=== PATIENT | female | born 1965 | race Caucasian/White ===

== ENCOUNTER 2017-09-13 20:31 | Emergency (ER) | payer OTHER ==
[~2017-09-13] VITALS: Ht 162.6 cm; Wt 57.7 kg
[~2017-09-13 20:31] MED LIST: BIRTH CONTROL PILLS; CIPR500T4 PO; HYDR-3498 PO; IBUP-1542 PO; PHEN-538 PO; PRED20TA PO
[2017-09-13 20:34] VITALS: Ht 162.6 cm; Wt 57.7 kg
[2017-09-13 21:25] VITALS: BP 128/90; PULSE 90; RESP 18; TEMP 97.7
[2017-09-13 21:28] LABS: URINE BLOOD (Dip) POC Negative (NEGATIVE)
[2017-09-13] MEDS ORDERED: LIDOCAINE/MYLANTA 40 ML BTL PO STA (21:29)
[2017-09-13 22:00] LABS: BASOPHILS % 0.4 % (0.0-2.0); EOSINOPHILS % 0.6 % (0.0-7.0); HEMATOCRIT 43.6 % (37.0-47.0); LYMPHOCYTES % 14.5 % (15.0-51.0); MEAN CORPUSCULAR HEMOGLOBIN 31.9 pg (29.0-33.0); MEAN CORPUSCULAR HGB CONC 34.4 g/dl (32.0-37.0); MEAN CORPUSCULAR VOLUME 92.8 fl (82.0-101.0); MEAN PLATELET VOLUME 9.8 fl (7.4-10.4); MONOCYTE # 0.5 10^3/ul (0.3-0.9); MONOCYTES % 6.9 % (0.0-11.0); NEUTROPHIL # 5.3 10^3/ul (1.6-7.5); NEUTROPHILS % 77.5 % (39.0-77.0); PLATELET COUNT 302 10^3/UL (140-415); RED CELL DISTRIBUTION WIDTH 12.4 % (11.5-14.5); WHITE BLOOD COUNT 6.8 10^3/ul (4.8-10.8)
[2017-09-13 22:26] LABS: ANION GAP 17 (8-16); BLOOD UREA NITROGEN 16 mg/dl (7-20); CARBON DIOXIDE 27 mmol/L (21-31); CHLORIDE 104 mmol/L (97-110); GLUCOSE 96 mg/dl (70-220); SODIUM 144 mmol/L (135-144)
[2017-09-13] MEDS ORDERED: OXYCODONE/ACETAMINOPHEN (5/325) TAB PO ONE (22:30)
[2017-09-13] MEDS ORDERED: KETOROLAC 15 MG INJ IV STA (22:30)
[2017-09-13] MEDS ORDERED: IBUP-1542 PO (22:35)
[2017-09-13 22:45] LABS: TROPONIN-I < 0.012 ng/ml (0.00-0.12)
--- NOTE | 2017-09-13 22:58 | ERD ---
ER Documentation Chief Complaint Chief Complaint chest pain x 1 week ,back pain [id number], denies injury HPI 52-year-old woman complains of 1 week of sharp nonexertional nonradiating chest pain and osteoarthritic pain to the back 2 months, not 2 weeks. She was recently admitted to [facility] for pain control and told she needs to undergo back surgery due to severe osteoarthritis of the thoracic and lumbar spine. She is currently homeless as well and needs a place to stay. She is requesting pain control. She states she has difficulty ambulating due to pain. She denies fevers or chills, no cough, no weight loss, no complaints of headache or blurry vision. ROS All systems reviewed and are negative except as per history of present illness. Medications Home Meds Active Scripts Ibuprofen* (Ibuprofen*) 600 Mg Tablet, 600 MG PO Q8 for PAIN AND/OR INFLAMMATION , #30 TAB Prov:REGINE PULIDO MD 09/13/17 Phenazopyridine Hcl* (Pyridium*) 200 Mg Tab, 200 MG PO TID for URINARY PAIN, #6 TAB Prov:DESMOND GIRON NP 05/30/15 Ciprofloxacin Hcl* (Ciprofloxacin Hcl*) 500 Mg Tablet, 500 MG PO BID for 10 Days , TAB Prov:DESMOND GIRON NP 05/30/15 Ibuprofen* (Motrin*) 600 Mg Tab, 600 MG PO Q6, #30 TAB Prov:DWAYNE SEXTON MD 04/01/15 Hydrocodone Bit-Acetaminophen* ([place]*) 5-325 Mg Tab, 1 TAB PO Q6 Y for PAIN, # 20 TAB Prov:DWAYNE SEXTON MD 04/01/15 Prednisone* (Prednisone*) 20 Mg Tab, 40 MG PO DAILY for 4 Days, TAB Prov:DWAYNE SEXTON MD 04/01/15 Reported Medications [ Control Pills] No Conflict Check 06/28/10 Allergies Allergies: Coded Allergies: Penicillins (Verified Allergy, Mild, 05/30/15) codeine (Verified Allergy, Mild, MIGRAINE, 05/30/15) Sulfa (Sulfonamide Antibiotics) (Verified Allergy, Unknown, 05/30/15) PMhx/Soc Chronic pain syndrome, osteoarthritis History of Surgery: Yes ( x28 years) Anesthesia Reaction: No Hx Neurological Disorder: No Hx Respiratory Disorders: No Hx Cardiac Disorders: No Hx Psychiatric Problems: No Hx Miscellaneous Medical Probl: No Hx Alcohol Use: Yes (SOCIALLY) Hx Substance Use: Yes (Smokes Marijuana occasionally) Hx Tobacco Use: No Smoking Status: Current some day smoker FmHx Family History: No diabetes Physical Exam Vitals Vital Signs Date Time Temp Pulse Resp B/P Pulse Ox O2 Delivery O2 Flow Rate FiO2 09/13/17 21:25 97.7 90 18 128/90 100 Room Air 09/13/17 20:34 97.7 101 20 143/82 98 Physical Exam GENERAL: Well-developed, well-nourished, well-hydrated, in no apparent distress , looks nontoxic in appearance, afebrile HEENT: Moist mucous membranes, pink conjunctiva, no cervical spine tenderness or step-off deformities, no goiter, no jaundice or icterus, extraocular movements intact without pain. No submandibular induration, and no pharyngeal erythema NEURO: Alert and oriented 3, cranial nerves II through XII intact bilaterally, pupils equal round reactive to light, no focal deficits or facial asymmetry, sensation intact distally Strength 5/5 in upper and lower extremities bilaterally CARDIAC: Tachycardic and regular, no murmurs rubs or gallops LUNGS: Clear bilaterally no wheezing crackles or stridor ABDOMEN: Soft nontender, no guarding, no rigidity, no rebound, no psoas sign no obturator sign. Normoactive bowel sounds SKIN: Warm and dry to touch, no abrasions, contusions, or hematomas, no lacerations, no ecchymosis, no target lesions, and without ulcers EXTREMITIES: No clubbing cyanosis or edema, calves are bilaterally symmetrical, no Homans sign, no popliteal cord sign. Distal pulses equal and bilateral PSYCH: Normal affect without agitation or irritability Result Diagram: 09/13/17213909/[id number]/172139 Results 24 hrs Laboratory Tests Test 09/13/17 21:27 09/13/17 21:40 Bedside Urine pH (LAB) 5.5 Bedside Urine Protein (LAB) Trace Bedside Urine Glucose (UA) Negative Bedside Urine Ketones (LAB) 1+ Bedside Urine Blood Negative Bedside Urine Nitrite (LAB) Negative Bedside Urine Leukocyte Esterase (L Trace White Blood Count 6.810^3/ul Red Blood Count 4.7010^6/ul Hemoglobin 15.0g/dl Hematocrit 43.6% Mean Corpuscular Volume 92.8fl Mean Corpuscular Hemoglobin 31.9pg Mean Corpuscular Hemoglobin Concent 34.4g/dl Red Cell Distribution Width 12.4% Platelet Count 75708^3/UL Mean Platelet Volume 9.8fl Neutrophils % 77.5% Lymphocytes % 14.5% Monocytes % 6.9% Eosinophils % 0.6% Basophils % 0.4% Nucleated Red Blood Cells % 0.0/100WBC Neutrophils # 5.310^3/ul Lymphocytes # 1.010^3/ul Monocytes # 0.510^3/ul Eosinophils # 0.010^3/ul Basophils # 0.010^3/ul Nucleated Red Blood Cells # 0.010^3/ul Sodium Level 144mmol/L Potassium Level 4.0mmol/L Chloride Level 104mmol/L Carbon Dioxide Level 27mmol/L Anion Gap 17 Blood Urea Nitrogen 16mg/dl Creatinine 0.80mg/dl Glucose Level 96mg/dl Calcium Level 10.0mg/dl Troponin I < 0.012ng/ml Current Medications Medications (Trade) Dose Ordered Sig/Zari Route PRN Reason Start Time Stop Time Status Last Admin Dose Admin Miscellaneous Medication (Gi Cocktail (2)) 40 ml ONCE STAT PO 09/13/17 21:29 09/13/17 21:31 DC 09/13/17 21:51 Ketorolac Tromethamine (Toradol) 15 mg ONCE STAT IV 09/13/17 22:30 09/13/17 22:32 DC Oxycodone/ Acetaminophen (Percocet (5/ 325)) 1 tab ONCE ONCE PO 09/13/17 22:30 09/13/17 22:32 DC Procedures/MDM IV line was established patient was placed on classroom monitor rhythm strip revealed a sinus tachycardia at 110 bpm with upright P and T waves. Patient was afebrile EKG performed, read by me revealed a sinus tachycardia at 110 bpm, normal axis, narrow QRS complex, no concerning ST elevations or depressions noted. One view chest x-ray performed, read by me revealed atelectatic changes bilaterally, no acute infiltrates, no pneumothorax. I administered Toradol 15 mg IV and Percocet 1 tablet p.o. for pain control. CBC and electrolytes are normal, troponin was negative. Urine analysis was unremarkable. I offered her social media campaign manager consultation in the morning to help with placement issues, patient insists she is now homeless but admits to being at a board-and- care facility recently and having to also use the services of [facility] which is a homeless correction. She became extremely agitated when I informed her I have no indication at this time for further intervention, imaging, or admission into the hospital. It seems admission is what she is seeking today and began to berate me after being informed about her disposition. She was extremely rude to me and other ED staff. Differential diagnoses considered, included but not limited to acute coronary syndrome, pulmonary embolism, aortic dissection, abdominal aortic aneurysm, sepsis, stroke, meningitis, encephalitis, pneumonia, appendicitis, cholecystitis , bowel obstruction, pyelonephritis, nephrolithiasis, cystitis, as well as metabolic, hematologic, and electrolyte abnormalities. As well as abscess, cellulitis, fractures, and dislocations. Patient feels much better at this time, and vital signs are normal, symptoms have improved. I did give strict instructions to return to the ED if symptoms continue or worsen, patient will otherwise follow-up with primary care physician. Patient understood instructions and agreed to plan. Disclaimer: Inadvertent spelling and grammatical errors are likely due to EHR/ dictation software use and do not reflect on the overall quality of patient care. Also, please note that the electronic time recorded on this note does not necessarily reflect the actual time of the patient encounter. Departure Diagnosis: Primary Impression: Osteoarthritis Osteoarthritis location: spine Spinal region: thoracolumbar Spinal osteoarthritis complication: unspecified spinal osteoarthritis Qualified Code : M47.815 - Osteoarthritis of thoracolumbar spine, unspecified spinal osteoarthritis complication status Additional Impression: Chest pain Chest pain type: unspecified Qualified Code: R07.9 - Chest pain, unspecified type Condition: Good Patient Instructions: What Is Osteoarthritis?, Chest Pain, Uncertain Cause REGINE PULIDO MD Sep 13, 2017 22:58
--- NOTE | 2017-09-13 23:16 | RADRPT ---
PROCEDURE: Portable chest x-ray. CLINICAL INDICATION: Chest pain. TECHNIQUE: Portable AP view of the chest. COMPARISON: None. FINDINGS: No pulmonary edema or conolidation is identified. The cardiac silhouette is magnified. No pleural effusion is seen. There is no pneumothorax. IMPRESSION: 1. No evidence of acute cardiopulmonary disease. RPTAT: HTAR .David Otero MD, MD Date Time Electronically viewed and signed by .David Otero MD, on 09/13/2017 23:16 .R/
== END 2017-09-13 23:35 | disposition home or self-care (01) ==
LOC: E/R 20:31
DX: M47.815 Spondylosis without myelopathy or radiculopathy, thoracolumbar region (principal); F17.210 Nicotine dependence, cigarettes, uncomplicated
CPT/HCPCS: 36415; 71010; 80048; 81003; 84484; 85025; 93005; J1885; Z7502; Z7610

== ENCOUNTER 2018-08-03 07:17 | Emergency (ER) | END 2018-08-03 08:02 | disposition left against medical advice (07) ==

== ENCOUNTER 2018-08-05 13:49 | Emergency (ER) | END 2018-08-05 16:26 | disposition home or self-care (01) ==

== ENCOUNTER 2019-03-15 08:58 | Emergency (ER) | payer OTHER ==
[~2019-03-15] VITALS: Wt 58.0 kg
[2019-03-15 09:07] VITALS: BP 147/75; PULSE 86; RESP 18
[2019-03-15] MEDS ORDERED: ALBUTEROL 0.083% (NEB) 2.5 MG/3 ML AMP NEB STA (10:09)
[2019-03-15] MEDS ORDERED: METHYLPREDNISOLONE 125 MG INJ IM STA (10:09)
[2019-03-15] MEDS ORDERED: IPRATROPIUM (NEB) 0.5 MG/2.5 ML AMP NEB STA (10:09)
--- NOTE | 2019-03-15 10:12 | ERD ---
ER Documentation Chief Complaint Chief Complaint body aches, chills, runny nose HPI Patient is a 53 years old female with no known past medical history presenting to the clinic with cold-like symptoms X 1 week. Patient reports of cough, shortness of breath, difficulty breathing, white-green sputum production, throat pain, fever, chills, night sweats, general body aches, sinus pain, headaches, bilateral ear pain. Patient reports taking various OTC medication without resolution of symptoms. Patient states that symptoms are getting worse and reports she has pain all over the body. Patient states that she is able to tolerate oral intake without any difficulties. ROS All systems reviewed and are negative except as per history of present illness. Medications Home Meds Active Scripts Methylprednisolone* (Medrol* DOSE PACK) 4 Mg/Dose-Pack Tab.ds.pk, 4 MG PO . DIRECTED for 5 Days, PACKET Prov:KADEN HENRY PA-C 03/15/19 Dextromethorphan Hb-Promethazine Hcl* (Promethazine DM* Syrup) 473 Ml Syrup, 5 ML PO Q6 PRN for COUGH for 7 Days, ML Prov:KADEN HENRY PA-C 03/15/19 Clindamycin Hcl* (Clindamycin Hcl*) 300 Mg Capsule, 300 MG PO TID for 10 Days, CAP Prov:KADEN HENRY PA-C 03/15/19 Allergies Allergies: Coded Allergies: Penicillins (Verified Allergy, Mild, 05/30/15) codeine (Verified Allergy, Mild, MIGRAINE, 05/30/15) Sulfa (Sulfonamide Antibiotics) (Verified Allergy, Unknown, 05/30/15) PMhx/Soc section in 1988 Medical and Surgical Hx: pt denies Medical Hx History of Surgery: Yes ( ) Anesthesia Reaction: No Hx Neurological Disorder: No Hx Respiratory Disorders: No Hx Cardiac Disorders: No Hx Psychiatric Problems: No Hx Miscellaneous Medical Probl: No Hx Alcohol Use: Yes (SOCIALLY) Hx Substance Use: Yes (Smokes Marijuana occasionally) Hx Tobacco Use: Yes Smoking Status: Former smoker FmHx Family History: No diabetes, No coronary disease, No other Physical Exam Vitals Vital Signs Date Temp Pulse Resp B/P (MAP) Pulse Ox O2 O2 Flow FiO2 Time Delivery Rate 03/15/19 86 18 98 21 10:18 5/28/19 98.1 86 18 147/75 98 09:07 (99) Physical Exam Const: No acute distress Head: Atraumatic, frontal and maxillary sinus tenderness Eyes: Normal Conjunctiva ENT: Tympanic membrane erythematous bilaterally without any discharge or perforation. Nasal mucosa edematous. Mild oropharyngeal erythema. Neck: Full range of motion. No meningismus. Resp: Diminished breath sounds bilaterally. No rales, no rhonchi, no wheezi ng. Cardio: Regular rate and rhythm, no murmurs Ext: No cyanosis, or edema Neur: Awake and alert Psych: Normal Mood and Affect Results 24 hrs Current Medications Medications Dose Sig/Zari Start Time Status Last (Trade) Ordered Route PRN Stop Time Admin Dose Reason Admin Albuterol 5 mg ONCE STAT 03/15/19 DC 03/15/19 (Proventil NEB 10:09 10:18 0.083% (Neb)) 03/15/19 10:12 Ipratropium 1 mg ONCE STAT 03/15/19 DC 03/15/19 [place] NEB 10:09 10:18 (Atrovent 03/15/19 10:12 0.02% (Neb)) 125 mg ONCE STAT 03/15/19 DC 03/15/19 Methylprednis IM 10:09 10:24 olone Sodium 03/15/19 10:12 Succinate (Solu-Medrol) Procedures/MDM Patient was seen and evaluated for cold-like symptoms. Patient exhibits signs of viral infection with sinusitis bilateral otitis media. Patient's x-ray is grossly unremarkable. Patient's influenza and strep testing are both negative. Patient did not require any IV fluids for today's visit and was placed on p.o. hydration. Patient reports feeling significantly better status post nebulizer and Solu- Medrol IM treatment. Patient is stable and will be discharged with Medrol Dosepak, clindamycin, and promethazine DM. Clindamycin is being prescribed as patient has allergy to both sulfa and penicillin. Clindamycin will also cover sinusitis infection. Departure Diagnosis: Primary Impression: Otitis media of both ears Otitis media type: suppurative Chronicity: acute Recurrence: non- recurrent Spontaneous tympanic membrane rupture: without spontaneous rupture Qualified Codes: H66.003 - Acute suppurative otitis media without spontaneous rupture of ear drum, bilateral Additional Impressions: Bronchitis Sinusitis Sinusitis location: maxillary Chronicity: acute Recurrence: non- recurrent Qualified Codes: J01.00 - Acute maxillary sinusitis, unspecified Condition: Stable Referrals: [facility] Additional Instructions: Patient advised to return to the ED immediately for new or worsening symptoms. Patient advised to follow up with primary care provider in the next 24-48 hours. Patient verbalized understanding and agrees with treatment plan and course of action. If patient has no primary care they may follow up with [facility] [address] [place] [id number] or [facility] [id number] [place] [id number] or [facility] [address] [place] [address] KADEN HENRY PA-C March 15, 2019 10:12
[2019-03-15] MEDS ORDERED: CLIN300C10 PO (11:10)
[2019-03-15] MEDS ORDERED: MED4DP PO (11:11)
[2019-03-15] MEDS ORDERED: D-ME473S2 PO (11:11)
== END 2019-03-15 11:25 | disposition home or self-care (01) ==
LOC: FTE 08:58
DX: H66.003 Acute suppurative otitis media without spontaneous rupture of ear drum, bilateral (principal); J40 Bronchitis, not specified as acute or chronic; J01.00 Acute maxillary sinusitis, unspecified; Z87.891 Personal history of nicotine dependence
CPT/HCPCS: 71045; 87400; 87880; 94664; 96372; J2930; Z7502; Z7610

== ENCOUNTER 2019-03-22 22:57 | Emergency (ER) | payer SELFPAY ==
[~2019-03-22] VITALS: Ht 162.6 cm; Wt 51.9 kg
[~2019-03-22 22:57] MED LIST changes: -BIRTH CONTROL PILLS; -CIPR500T4 PO; +CLIN300C10 PO; +D-ME473S2 PO; -HYDR-3498 PO; -IBUP-1542 PO; +MED4DP PO; -PHEN-538 PO; -PRED20TA PO
[2019-03-22 23:11] VITALS: BP 119/62; PULSE 99; RESP 20; Ht 162.6 cm; Wt 51.9 kg
== END 2019-03-23 01:07 | disposition left against medical advice (07) ==
LOC: FTE 22:57
DX: Z53.21 Procedure and treatment not carried out due to patient leaving prior to being seen by health care provider (principal)